=== PATIENT | female | born 1990 | race American Indian/Alaskan Native ===

== ENCOUNTER 2018-10-14 09:22 | Emergency (ER) | payer MEDICAID ==
[2018-10-14 09:30] VITALS: BP 109/63
--- NOTE | 2018-10-14 09:51 | Emergency Department Report ---
ED Back Pain/Injury HPI - General Chief Complaint: Back Pain/Injury Stated Complaint: BACK/SIDE PAIN/DIZZINESS Time Seen by Provider: 10/14/18 09:47 Source: patient Limitations: No Limitations - History of Present Illness Initial Comments: 27-year-old -[place] female comes to the emergency room for severe lower back pain 2 weeks and dizziness 3 days. Patient states that she is on her feet at work from 8-20 hours a day. Patient denies any trauma denies any difficulty urine. Patient reports that she is taking Advil muscle and pain. Patient reports her dizziness is worse when she bending and it feels like the room is spinning. Patient reports her last menstrual period was 09/23/2018 and normal. Patient denies any nausea vomiting no fever no chills. Patient reports no past medical history takes no medications on a daily basis and has a primary care provider name Dr. Mosher. She has no known drug allergies MD Complaint: back pain -: days(s) (3 days for dizziness), week(s) (2 for severe lower back pain) Similar Symptoms Previously: No Place: work Radiation: buttocks Severity: severe Severity scale (0 -10): 8 Consistency: intermittent Improves With: immobilization Context: while lifting, turning/twisting Associated Symptoms: denies: confusion, weakness, chest pain, numbness, difficulty walking, cough, difficulty urinating, diaphoresis, incontinence, fever/chills, constipation, headaches, abdominal pain, loss of appetite, malaise, nausea/vomiting, rash, seizure, shortness of breath, syncope Treatments Prior to Arrival: NSAIDS - Related Data Previous Rx's Medication Instructions Recorded Last Taken Type hydrOXYzine HCL [Atarax] 25 mg PO Q6HR PRN #12 tablet 10/14/18 Unknown Rx predniSONE [Deltasone] 20 mg PO QDAY #4 tab 10/14/18 Unknown Rx traMADol [Ultram 50 MG tab] 50 mg PO Q6HR PRN #12 tablet 10/14/18 Unknown Rx Allergies Allergy/AdvReac Type Severity Reaction Status Date / Time No Known Allergies Allergy Unverified 10/14/18 09:25 ED Review of Systems ROS: Stated complaint: BACK/SIDE PAIN/DIZZINESS Other details as noted in HPI Comment: All other systems reviewed and negative Musculoskeletal: back pain ED Past Medical Hx - Past Medical History Previous Medical History?: No - Surgical History Past Surgical History?: No - Social History Smoking Status: Never Smoker Substance Use Type: Other - Medications Home Medications: Home Medications Medication Instructions Recorded Confirmed Last Taken Type hydrOXYzine HCL [Atarax] 25 mg PO Q6HR PRN #12 tablet 10/14/18 Unknown Rx predniSONE [Deltasone] 20 mg PO QDAY #4 tab 10/14/18 Unknown Rx traMADol [Ultram 50 MG tab] 50 mg PO Q6HR PRN #12 tablet 10/14/18 Unknown Rx ED Physical Exam - General Limitations: No Limitations General appearance: alert, in no apparent distress - Head Head exam: Present: atraumatic, normocephalic - Eye Eye exam: Present: normal appearance - ENT ENT exam: Present: mucous membranes moist - Neck Neck exam: Present: normal inspection, full ROM - GI/Abdominal GI/Abdominal exam: Present: soft, normal bowel sounds - Extremities Exam Extremities exam: Present: normal inspection, full ROM. Absent: tenderness - Back Exam Back exam: Present: paraspinal tenderness - Expanded Back Exam Expanded Back exam: Sciatic Notch Tenderness: Left, Right, Positive Straight Leg Raise: Left - Neurological Exam Neurological exam: Present: alert, oriented X3 - Psychiatric Psychiatric exam: Present: normal affect, normal mood ED Course Vital Signs 10/14/18 09:28 Temperature 97.7 F Pulse Rate 80 Respiratory 20 Rate Blood Pressure 109/63 O2 Sat by Pulse 98 Oximetry ED Medical Decision Making - Medical Decision Making 27-year-old -[place] female comes in complaining of vertigo-like symptoms and lower back pain. Patient had a negative urinalysis and negative . Patient has bilateral sacral notch tenderness with positive straight leg. Patient will be given Toradol injection and prednisone 40 mg. Patient to be discharged home on Atarax and prednisone in trauma at all. Critical care attestation.: If time is entered above; I have spent that time in minutes in the direct care of this critically ill patient, excluding procedure time. ED Disposition Clinical Impression: Vertigo Sciatica Qualifiers: Laterality: bilateral Qualified Code(s): M54.31 - Sciatica, right side; M54.32 - Sciatica, left side Disposition: - TO HOME OR SELFCARE Is pt being admited?: No Does the pt Need Aspirin: No Condition: Stable Instructions: Dizziness (ED), Vertigo (ED), Sciatica (ED) Additional Instructions: Please take medication as prescribed. Please increase her water intake but taking medications. Please be aware that some of the medications have placed you on may increased drowsiness with please do not operate heavy machinery while taking medications. Follow up with her primary care provider if his symptoms persist or gets worse. Prescriptions: hydrOXYzine HCL [Atarax] 25 mg PO Q6HR PRN #12 tablet PRN Reason: Itching predniSONE [Deltasone] 20 mg PO QDAY #4 tab traMADol [Ultram 50 MG tab] 50 mg PO Q6HR PRN #12 tablet PRN Reason: Pain
[2018-10-14 10:17] LABS: Bacteria,Urine 1+ /HPF (Negative); Bilirubin,Urine NEG (Negative); Blood,Urine NEG (Negative); Color,Urine Yellow (Yellow); Mucus,Urine 3+ /HPF; Urobilinogen,Urine < 2.0 mg/dL (<2.0)
[2018-10-14 10:19] LABS: HCG Qualitative,Urine Negative (Negative)
[2018-10-14] MEDS ORDERED: TORADOL IM ONE (10:25)
[2018-10-14] MEDS ORDERED: DELTASONE PO ONE (10:25)
== END 2018-10-14 10:56 | disposition home or self-care (01) ==
LOC: ED 09:22
DX: M54.42 Lumbago with sciatica, left side (principal); M54.41 Lumbago with sciatica, right side; R42 Dizziness and giddiness; Z79.899 Other long term (current) drug therapy
CPT/HCPCS: 81001; 81025; 96372; 99283; J1885; J7512

== ENCOUNTER 2019-07-25 14:07 | Emergency (ER) | payer MEDICAID ==
[2019-07-25 14:20] VITALS: BP 138/97
--- NOTE | 2019-07-25 14:52 | XRay Report ---
CHEST 2 VIEWS INDICATION: sob. COMPARISON: None FINDINGS: Support devices: None. Heart: Within normal limits. Lungs/pleura: No acute air space or interstitial disease. No pneumothorax. Additional findings: Moderate dextroscoliosis in the midthoracic spine. IMPRESSION: 1. No acute findings. Signer Name: Sly Rosenbaum MD Signed: 07/25/2019 2:48 PM Workstation Name: [id number]
--- NOTE | 2019-07-25 17:31 | Emergency Department Report ---
ED General Adult HPI - General Chief complaint: Dyspnea/Respdistress Stated complaint: SOB/RUNNY NOSE Time Seen by Provider: 07/25/19 17:21 Source: patient Mode of arrival: Ambulatory Limitations: No Limitations - History of Present Illness Initial comments: This is a 28-year-old female with no other prior medical history presents the ED today complaining of an episode of shortness of breath while she was at work on . 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 Patient states that she was told on that they were possible to cold feet cases further with her coworkers. Patient does not recall any intimate contact with the coworkers but states that today she began to feel little shortness of breath so she came to be evaluated. Patient states she has been having some runny nose on Tuesday. Patient is unsure if it is the chemical she works with or if she is sick. Patient is denying fever, chills, nausea vomiting, diarrhea, chest pain or any other symptoms. - Related Data Previous Rx's Medication Instructions Recorded Last Taken Type hydrOXYzine HCL [Atarax] 25 mg PO Q6HR PRN #12 tablet 10/14/18 Unknown Rx predniSONE [Deltasone] 20 mg PO QDAY #4 tab 10/14/18 Unknown Rx traMADoL [Ultram 50 MG tab] 50 mg PO Q6HR PRN #12 tablet 10/14/18 Unknown Rx Allergies Allergy/AdvReac Type Severity Reaction Status Date / Time No Known Allergies Allergy Unverified 10/14/18 09:25 ED Review of Systems ROS: Stated complaint: SOB/RUNNY NOSE Other details as noted in HPI Comment: All other systems reviewed and negative ED Past Medical Hx - Past Medical History Previous Medical History?: No - Surgical History Past Surgical History?: No - Social History Smoking Status: Never Smoker Substance Use Type: None - Medications Home Medications: Home Medications Medication Instructions Recorded Confirmed Last Taken Type hydrOXYzine HCL [Atarax] 25 mg PO Q6HR PRN #12 tablet 10/14/18 Unknown Rx predniSONE [Deltasone] 20 mg PO QDAY #4 tab 10/14/18 Unknown Rx traMADoL [Ultram 50 MG tab] 50 mg PO Q6HR PRN #12 tablet 10/14/18 Unknown Rx ED Physical Exam - General Limitations: No Limitations General appearance: alert, in no apparent distress - Head Head exam: Present: atraumatic, normocephalic - Eye Eye exam: Present: normal appearance - ENT ENT exam: Present: mucous membranes moist - Neck Neck exam: Present: normal inspection - Respiratory Respiratory exam: Present: normal lung sounds bilaterally. Absent: respiratory distress, wheezes, rales, chest wall tenderness, accessory muscle use - Cardiovascular Cardiovascular Exam: Present: regular rate, normal rhythm. Absent: systolic murmur, diastolic murmur, rubs, gallop - GI/Abdominal GI/Abdominal exam: Present: soft, normal bowel sounds - Extremities Exam Extremities exam: Present: normal inspection - Back Exam Back exam: Present: normal inspection - Neurological Exam Neurological exam: Present: alert, oriented X3 - Psychiatric Psychiatric exam: Present: normal affect, normal mood - Skin Skin exam: Present: warm, dry, intact, normal color. Absent: rash ED Course Vital Signs 07/25/19 14:18 Temperature 97.7 F Pulse Rate 74 Respiratory 18 Rate Blood Pressure 138/97 O2 Sat by Pulse 100 Oximetry ED Medical Decision Making - Lab Data Vital Signs 07/25/19 14:18 Temperature 97.7 F Pulse Rate 74 Respiratory 18 Rate Blood Pressure 138/97 O2 Sat by Pulse 100 Oximetry - Radiology Data Radiology results: report reviewed, image reviewed CHEST 2 VIEWS INDICATION: persistent cough. COMPARISON: 10/23/2016 FINDINGS: Support devices: None. Heart: Within normal limits. Pulmonary vasculature: Normal. Lungs/pleura: A faint right middle lobe opacity and mild streaky opacities in the left lower lobe are not significantly changed compared to the last exam. No pleural effusion. Additional findings: None. IMPRESSION: 1. No acute findings. Signer Name: Herson Baker MD Signed: 07/25/2019 11:32 AM Workstation Name: [id number] Transcribed By: REF Dictated By: HERSON BAKER MD Electronically Authenticated By: HERSON BAKER MD Signed Date/Time: 07/25/19 1132 - Medical Decision Making 28 year-old female presents with upper respiratory symptoms no fever during the ED stay. Chest x-ray shows no acute findings. Discussed with mother symptomatic relief with [id number] medications. Discussed continue Tylenol and Motrin as needed for fever and pain. Discussed increase fluids and diet intake. Discussed daily vitamin C for immune booster. Discussed follow-up with pcp in 3-5 days. Patient verbally states she understands and will comply the following instructions and follow-up. Patient saturation did not reduce after exertion in the ED. Discussed with patient to stay home for 14 days and self quarantine. Discussed with patient she may return to the ED if any new or onset of symptoms. Patient is in no respiratory distress during ED stay. Vital signs stable. Patient is in no acute distress Health department contact number given for patient initiate testing at home Critical care attestation.: If time is entered above; I have spent that time in minutes in the direct care of this critically ill patient, excluding procedure time. ED Disposition Clinical Impression: URI (upper respiratory infection) Disposition: DC-01 TO HOME OR SELFCARE Is pt being admited?: No Does the pt Need Aspirin: No Condition: Stable Instructions: COVID-19 Additional Instructions: Make sure to follow up with the primary care physician as discussed. Stay at home and self quarantine. You may return to work after a period of non- symptoms If you have any worsening symptoms or develop new symptoms please return to ED immediately. Referrals: DAVID RIZO MD [Primary Care Provider] - 3-5 Days Forms: Accompanied Note, Work/School Release Form(ED) Time of Disposition: 18:06
== END 2019-07-25 18:16 | disposition home or self-care (01) ==
LOC: ED 14:07
DX: J06.9 Acute upper respiratory infection, unspecified (principal); Z79.899 Other long term (current) drug therapy
CPT/HCPCS: 71046

== ENCOUNTER 2020-04-10 18:47 | Emergency (ER) | payer MEDICAID ==
[2020-04-10] MEDS ORDERED: HYDROcodone/ACETAMINOPHEN 7.5-325MG TAB PO ONE (19:44)
[2020-04-10] MEDS ORDERED: ONDANSETRON 4 MG ODT TAB PO ONE (19:44)
[2020-04-10] MEDS ORDERED: IBUPROFEN 600 MG TAB PO ONE (19:44)
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
[2020-04-10 22:47] VITALS: BP 110/57
== END 2020-04-10 22:18 | disposition home or self-care (01) ==
LOC: ED 18:47
DX: M62.830 Muscle spasm of back (principal); Z79.899 Other long term (current) drug therapy; V49.49XA Driver injured in collision with other motor vehicles in traffic accident, initial encounter; Y93.89 Activity, other specified; Y92.410 Unspecified street and highway as the place of occurrence of the external cause; Y99.8 Other external cause status
CPT/HCPCS: 36415; 70450; 72125; 72131; 84703; Q0162